=== PATIENT | female | born 2000 | race African-American/Black ===

== ENCOUNTER 2020-04-06 15:32 | Emergency (ER) | payer OTHER ==
--- NOTE | 2020-04-06 15:42 | PDOC ---
Rapid Medical Evaluation Chief Complaint: Lightheaded Time Seen by Provider: 04/06/20 15:38 Medical Evaluation: 04/06/20 15:39 I have performed a brief in-person evaluation of this patient. The patient presents with a chief complaint of: h/o anxiety BIBA for dizziness s/p being given Klonipine by coworker after complaining of headache this afternoon. pt never took Klonidpine before. pt report frontal headache. report h/o migraines but not on any medication. Denies N/V, abd pains Pertinent physical exam findings: A&O x 3 in NAD. heart RRR. lungs CTAB. I have ordered the following: deferred The patient will proceed to the ED for further evaluation. Discharge Disposition - Diagnosis Dizziness and giddiness - Discharge Dispostion Condition at time of disposition: Stable - Referrals - Patient Instructions - Post Discharge Activity
[2020-04-06 15:49] VITALS: TEMP 98.5; BMI 19.7
[2020-04-06] MEDS ORDERED: SODIUM CHLORIDE 1,000 ML IV STA (16:31)
[2020-04-06] MEDS ORDERED: METOCLOPRAMIDE HCL INJECTION 10 MG/2 ML VIAL IVPUSH ONE (16:31)
[2020-04-06] MEDS ORDERED: ACETAMINOPHEN 1000 MG/100 ML VIAL (NON FORMULARY) IVPB ONE (16:31)
--- NOTE | 2020-04-06 17:15 | PDOC ---
History of Present Illness <Hazel Vinson - Last Filed: 04/06/20 18:24> - General History Source: Patient Exam Limitations: No Limitations - History of Present Illness Initial Comments: 04/06/20 17:10 HISTORY OF PRESENT ILLNESS: 19-year-old woman with past medical history of migraines who presents emergency department for evaluation of dizziness after taking clonazepam. Patient reports the pain is 8/10 and frontal in location. Patient describes the pain as a pressure and reports the pain is nonradiating. Patient reports she was at work today when she had a headache and her coworker believed it was anxiety and gave her 1 of her prescribed Klonopin. Patient is unaware of dosage she has taken. Patient reports her headache has not improved after receiving the medication but she now feels drowsy and dizzy. She denies any blurry vision, nausea, vomiting, chest pain, shortness of breath. No recent travel or sick contacts. PAST MEDICAL HISTORY: Denies past medical history SURGICAL HISTORY: Denies ALLERGIES: No known drug allergies REVIEW OF SYSTEMS General/Constitutional: Denies fever or chills. Denies weakness, weight change. HEENT: Denies change in vision. Denies ear pain or discharge. Denies sore throat. Cardiovascular: Denies chest pain or shortness of breath. Respiratory: Denies cough, wheezing, or hemoptysis. Gastrointestinal: Denies nausea, vomiting, diarrhea or constipation. Denies rectal bleeding. Genitourinary: Denies dysuria, frequency, or change in urination. Musculoskeletal: Denies joint or muscle swelling or pain. Denies neck or back pain. Skin and breasts: Denies rash or easy bruising. Neurologic: Denies headache, vertigo, loss of consciousness, or loss of sensation. Psychiatric: Denies depression or anxiety. Endocrine: Denies increased thirst. Denies abnormal weight change. Hematologic/Lymphatic: Denies anemia, easy bleeding, or history of blood clots. Allergic/Immunologic: Denies hives or skin allergy. Denies latex allergy. PHYSICAL EXAM General Appearance: Well-appearing, appropriately dressed. No apparent distress, no intoxication. HEENT: EOMI, PERRLA, normal ENT inspection, normal voice, TMs normal, pharynx normal. No conjunctival pallor. No photophobia, scleral icterus. No tenderness upon palpation over the frontal or maxillary sinuses. Neck: Supple. Trachea midline. No tenderness, rigidity, carotid bruit, stridor, lymphadenopathy, or thyromegaly. Respiratory/Chest: Lungs CTAB. No shortness of breath, chest tenderness, respiratory distress, accessory muscle use. No crackles, rales, rhonchi, stridor, wheezing, dullness Cardiovascular: RRR. S1, S2. No JVD, murmur, bradycardia, tachycardia. Neurologic: chief talent officer II-XII intact. Fully oriented, alert. Appropriate mood/affect. Motor strength 5/5. No appreciable EOM palsy, facial droop or sensory deficit. <Lan Bose - Last Filed: 04/06/20 20:58> - General Chief Complaint: Lightheaded Stated Complaint: WEAKNESS/HEADACHE Time Seen by Provider: 04/06/20 15:38 Past History <Hazel Vinson - Last Filed: 04/06/20 18:24> - Psycho-Social/Smoking History Smoking History: Never smoked - Substance Abuse Hx (Audit-C & DAST Scrn) How often the patient has a drink containing alcohol: Never Score: In Men: 4 or > Positive; In Women: 3 or > Positive: 0 Screen Result (Pos requires Nsg. Audit-10AR): Negative In the last yr the pt used illegal drug/Rx for NonMed reason: No Score: Yes response is considered Positive: 0 Screen Result (Positive result requires Nsg. DAST-10): Negative <Lan Bose - Last Filed: 04/06/20 20:58> - Medical History Allergies/Adverse Reactions: Allergies Allergy/AdvReac Type Severity Reaction Status Date / Time No Known Allergies Allergy Verified 04/06/20 17:07 Home Medications: Ambulatory Orders NK [No Known Home Medication] 04/06/20 *Physical Exam - Vital Signs Last Vital Signs Temp Pulse Resp BP Pulse Ox 98.5 F 91 H 16 103/66 99 04/06/20 15:38 04/06/20 15:38 04/06/20 15:38 04/06/20 15:38 04/06/20 15:38 <Hazel Vinson - Last Filed: 04/06/20 18:24> - Vital Signs Last Vital Signs Temp Pulse Resp BP Pulse Ox 98.5 F 91 H 16 103/66 99 04/06/20 15:38 04/06/20 15:38 04/06/20 15:38 04/06/20 15:38 04/06/20 15:38 <Lan Bose - Last Filed: 04/06/20 20:58> ED Treatment Course - Medications Given in the ED: ED Medications Discontinued Medications Generic Name Dose Route Start Last Admin Trade Name [place] PRN Reason Stop Dose Admin Acetaminophen 1,000 mg 04/06/20 16:31 04/06/20 17:58 Ofirmev Injection - IVPB 04/06/20 16:32 1,000 mg ONCE ONE Administration Diphenhydramine HCl 25 mg 04/06/20 16:31 04/06/20 17:50 Benadryl Injection - IVPUSH 04/06/20 16:32 25 mg ONCE ONE Administration Sodium Chloride 1,000 mls @ 1,000 mls/hr 04/06/20 16:31 04/06/20 17:57 Normal Saline - IV 04/06/20 17:30 1,000 mls/hr ASDIR STA Administration Metoclopramide HCl 10 mg 04/06/20 16:31 04/06/20 18:01 Reglan Injection - IVPUSH 04/06/20 16:32 10 mg ONCE ONE Administration <Hazel Vinson - Last Filed: 04/06/20 18:24> Medical Decision Making - Medical Decision Making The patient was seen and evaluated in conjunction with midlevel provider under my direct supervision, ancillary studies were reviewed. I agree with the plan as outlined with OLVIN Bose. HPI, workup/dispo as outlined. VS reviewed, wnl. anticipate discharge, pcp followup, return precautions 04/06/20 18:24 <Hazel Vinson - Last Filed: 04/06/20 18:24> - Medical Decision Making 04/06/20 17:15 A/P: 19-year-old woman with headache and weakness and dizziness after taking Klonopin Neurologic exam is unremarkable No photophobia noted Normal saline 1 L IV bolus Reglan 10 mg IV push Benadryl 25 mg IV push Tylenol 1 g IV bolus Urinalysis, urine , urine culture Reassess 04/06/20 20:57 Patient currently with headache 0/10. Patient is requesting discharge at this time I discussed the physical exam findings, ancillary test results and final diagnoses with the patient. I answered all of the patient's questions. The patient was satisfied with the care received and felt comfortable with the discharge plan and treatment plan. The patient will call their primary care physician within 24 hours to arrange follow-up and will return to the Emergency Department with any new, persistent or worsening symptoms. Portions of this note have been documented using voice recognition software. As a result, errors may occur in the brewery representative process. Effort has been made to correct all grammatical and brewery representative error, but some may have been missed which may produce sporadic inaccurate brewery representative or nonsensical phrases. <JuiceLan - Last Filed: 04/06/20 20:58> Discharge <Hazel Vinson - Last Filed: 04/06/20 18:24> - Discharge Information Problems reviewed: Yes - Admission No <Lan Bose - Last Filed: 04/06/20 20:58> - Discharge Information Clinical Impression/Diagnosis: Dizziness and giddiness Headache Qualifiers: Headache type: tension-type Headache chronicity pattern: acute headache Intractability: not intractable Qualified Code(s): G44.209 - Tension-type headache, unspecified, not intractable Condition: Stable - Follow up/Referral Referrals: Alex Martinez MD [Staff Physician] - - Patient Discharge Instructions Additional Instructions: Take Tylenol or Motrin as needed for headaches. Keep a diary of all food to eat and activities performed prior to headaches starting. Make an appointment with her primary doctor for reevaluation within the next week. Return to emergency department for worsening headache, blurry vision, dizziness, nausea, vomiting or any other concerns. Thank you very much for for choosing us to provide emergent health care needs. - Post Discharge Activity Work/Back to School Note: Back to Work
[2020-04-06] MEDS ORDERED: METOCLOPRAMIDE HCL INJECTION 10 MG/2 ML VIAL ONE (17:21)
[2020-04-06] MEDS ORDERED: ACETAMINOPHEN INJECTION 100 ML IVPB ONE (17:21)
[2020-04-06 18:28] LABS: EPI CELLS 5 /uL (0-25.1); HYALINE CASTS 0 /uL (0-3.1); PH,URINE 7.5 (5.0-8.0); URINE APPEARANCE CLEAR; URINE BACTERIA 266 /uL (0-1359); URINE BILIRUBIN NEGATIVE (NEGATIVE); URINE COLOR YELLOW; URINE GLUCOSE (UA) NEGATIVE (NEGATIVE); URINE KETONE NEGATIVE (NEGATIVE); URINE LEUK ESTERASE NEGATIVE (NEGATIVE); URINE NITRITE NEGATIVE (NEGATIVE); URINE PROTEIN NEGATIVE (NEGATIVE); URINE RBC 4 /uL (0-23.9); URINE WBC 4 /uL (0-25.8)
[2020-04-06 19:09] LABS: HCG,QUALITATIVE URINE NEGATIVE
[2020-04-06] MEDS ORDERED: KETOROLAC TROMETHAMINE 30 MG/1 ML VIAL IVPUSH ONE (19:24)
[2020-04-06 20:50] VITALS: BP 103/73; PULSE 78
== END 2020-04-06 21:08 | disposition home or self-care (01) ==
LOC: JER 15:32
PROC: 3E0333Z Introduction of Anti-inflammatory into Peripheral Vein, Percutaneous Approach (ICD-10-PCS; principal; 2020-04-06)
PROC: 3E033GC Introduction of Other Therapeutic Substance into Peripheral Vein, Percutaneous Approach (ICD-10-PCS; 2020-04-06)
PROC: 3E0337Z Introduction of Electrolytic and Water Balance Substance into Peripheral Vein, Percutaneous Approach (ICD-10-PCS; 2020-04-06)
DX: G44.209 Tension-type headache, unspecified, not intractable (principal)
CPT/HCPCS: 81003; 84703; 87077; 87086; 99284-25; J0131